=== PATIENT | male | born 1955 | race Caucasian/White ===

== ENCOUNTER 2017-02-20 15:39 | Observation (INO) | payer MEDICAID ==
[2017-02-20] MEDS ORDERED: NALOXONE HCL 0.4 MG/ML INJ IVP ONE (15:40)
[2017-02-20] MEDS ORDERED: KETAMINE 100 MG/10 ML SYR IVP ONE (16:00)
[2017-02-20 16:29] LABS: % IMMATURE GRANULYOCYTES 0.5 % (0.0-1.1); ABSOLUTE IMMATURE GRANULOCYTES 0.03 10^3/uL (0.00-0.10); ADD DIFF? NO; ADD MORPH? NO; ADD SCAN? NO; ATYPICAL LYMPHOCYTE FLAG 0 (0-99); FRAGMENT RBC FLAG 0 (0-99); HEMOGLOBIN 10.7 g/dL (13.7-17.5); LEFT SHIFT FLG 0 (0-99); LIPEMIA HEMOLYSIS FLAG 80 (0-99); MEAN CELL HEMOGLOBIN 30.3 pg (27.9-34.1); MEAN CELL HEMOGLOBIN CONCENTR. 31.5 g/dL (32.4-36.7); MEAN CELL VOLUME 96.3 fL (81.5-99.8); MEAN PLATELET VOLUME 8.9 fL (8.7-11.7); PLATELET CLUMPS FLAG 10 (0-99); PLATELET COUNT 208 10^3/uL (150-400); RED BLOOD CELL COUNT 3.53 10^6/uL (4.40-6.38); RED CELL DISTRIBUTION WIDTH 14.8 % (11.5-15.2)
[2017-02-20 16:36] LABS: ANION GAP 12 mEq/L (8-16); CARBON DIOXIDE 23 mEq/l (22-31); CHLORIDE 103 mEq/L (97-110); CREATININE 2.5 mg/dL (0.7-1.3); ETHANOL SERUM < 10 mg/dL (0-10); GLOMERULAR FILTRATION RATE 27; GLUCOSE 96 mg/dL (70-100); POTASSIUM 4.6 mEq/L (3.5-5.2); SODIUM 138 mEq/L (134-144)
[2017-02-20 16:39] LABS: INR 1.09 (0.83-1.16)
--- NOTE | 2017-02-20 16:42 | EDPHY ---
H & P Time Seen by Provider: 02/20/17 16:18 HPI/ROS: CHIEF COMPLAINT: Full trauma activation HISTORY OF PRESENT ILLNESS: The patient is brought in by paramedics as a full trauma activation. He reportedly was a physical therapy appointment or he was noted to be altered. He reported to his therapist that he had fallen down stairs last night. The patient arrives and is somnolent and appears to be sedated. He reports he fell down his stairs. He struck his head. He had an unknown loss of consciousness. He complains of right shoulder pain and right rib pain. He denies any abdominal pain or lower extremity pain. The patient does complain of a mild headache and generalized neck pain. He denies acute numbness or weakness. REVIEW OF SYSTEMS: A comprehensive 10 point review of systems is otherwise negative aside from elements mentioned in the history of present illness. Source: Patient, EMS Exam Limitations: Clinical condition - Personal History Current Tetanus/Diphtheria Vaccine: Unsure - Medical/Surgical History PMH: Past medical history: Hypertension, chronic pain - Family History Significant Family History: No pertinent family hx - Social History Smoking Status: Unknown if ever smoked - Physical Exam Exam: General Appearance: Elderly male, diaphoretic, appears sedated and confused Head: Atraumatic Eyes: Pupils equal, round, reactive ENT, Mouth: No hemotympanum, no oral trauma Neck: In C-collar upon arrival, minimal tenderness to palpation in the cervical spine, no palpable step-off or deformity Respiratory: Tenderness to palpation right anterior chest wall and right distal clavicle Cardiovascular: Regular rate and rhythm Abdomen: Abdomen is soft and nontender, pelvis stable Skin: No lacerations, No abrasion Back: No midline T/L/S pain Extremities: Nontender, full range of motion Neurological: GCS 13,-1 eyes -1 verbal Constitutional: Initial Vital Signs Temperature (C) 36.7 C 02/20/17 16:56 Heart Rate 93 02/20/17 16:56 Respiratory Rate 20 02/20/17 16:56 Blood Pressure 94/64 L 02/20/17 16:56 O2 Sat (%) 97 02/20/17 16:56 O2 Delivery Mode Non-Rebreather Mask Allergies/Adverse Reactions: No Known Allergies Allergy (Unverified 02/20/17 16:45) Home Medications: Medication Instructions Recorded Atorvastatin Calcium [Lipitor 40 40 mg PO HS 02/20/17 mg (*)] Bupropion HCl [Wellbutrin Xl] 300 mg PO DAILY 02/20/17 Eszopiclone [Lunesta] 3 mg PO HS PRN 02/20/17 Gabapentin [Neurontin] 1,200 mg PO DAILY 02/20/17 Gabapentin [Neurontin] 1,800 mg PO HS 02/20/17 Lisinopril/Hctz 20/12.5MG 2 ea PO DAILY 02/20/17 [Zestoretic/Prinzide 20/12.5MG (*)] Metaxalone [Skelaxin 800 mg (*)] 800 mg PO TID 02/20/17 Metoclopramide [Reglan 10 mg tab 10 mg PO ACHS 02/20/17 (*)] Morphine Sulfate [Morphine Sulfate 15 mg PO TID 02/20/17 ER] Omeprazole 40 mg PO DAILY 02/20/17 Silodosin [Rapaflo] 4 mg PO DAILY 02/20/17 lamoTRIgine [Lamictal] 200 mg PO HS 02/20/17 oxyCODONE IR [Oxycodone Ir (*)] 10 mg PO Q6HRS 02/20/17 Medical Decision Making - Diagnostics Imaging Results: Imaging Impressions Chest X-Ray 02/20/17 15:50 Impression: Distal right clavicle fracture, otherwise negative trauma chest. Abdomen/Pelvis CT 02/20/17 16:20 Impression: 1. Comminuted minimally displaced posterior right first rib fracture with nondisplaced posterior right 2nd rib fracture and a probable nondisplaced right 3rd rib fracture. 2. Comminuted distal right clavicular fracture. 3. No acute posttraumatic findings in the abdomen or pelvis. 4. Constipation. 5. Numerous bullae in the lungs. 6. Bilateral nonobstructing nephrolithiasis. 7. Additional findings as above. Note: The study is limited by the lack of IV contrast, particularly assessment of the solid organs and the aorta. Findings discussed with Dr. Navjot Nelson on February 20, 2017 at [address] 02/20/17 16:20 Impression: 1. No acute posttraumatic abnormality identified in the cervical spine. 2. Comminuted minimally displaced posterior right first rib fracture with a nondisplaced posterior right second rib fracture and a probable nondisplaced right third rib fracture. 3. Additional findings as above. Findings discussed with Dr. Navjot Nelson on February 20, 2017 at [address] 02/20/17 16:20 Impression: 1. Comminuted minimally displaced posterior right first rib fracture with nondisplaced posterior right 2nd rib fracture and a probable nondisplaced right 3rd rib fracture. 2. Comminuted distal right clavicular fracture. 3. No acute posttraumatic findings in the abdomen or pelvis. 4. Constipation. 5. Numerous bullae in the lungs. 6. Bilateral nonobstructing nephrolithiasis. 7. Additional findings as above. Note: The study is limited by the lack of IV contrast, particularly assessment of the solid organs and the aorta. Findings discussed with Dr. Navjot Nelson on February 20, 2017 at [address] 02/20/17 16:21 Impression: 1. No acute intracranial findings. 2. Diffuse cerebral atrophy with periventricular and subcortical low attenuation consistent with chronic microvascular ischemic gliosis. Findings discussed with Dr. Navjot Nelson on February 20, 2017 at 1626 hours. Procedures: Procedure: Trauma ultrasound. Limited bedside ultrasound was performed and interpreted by myself for the indication of: Chest contusion. The exam was performed utilizing the thoracoabdominal emergency ultrasound protocol. Limited transthoracic echocardiogram: The pericardium was visualized and found to be negative for pericardial fluid. The study was negative for pericardial effusion. Limited abdominal ultrasound for blunt abdominal trauma. 1) The right upper quadrant was visualized and was found to be negative for intraperitoneal fluid. 2) The left upper quadrant was visualized and found to be negative for intraperitoneal fluid. The study was felt to be negative for free intraperitoneal fluid. Limited pelvic ultrasound was conducted for abdominal tenderness. The bladder was visualized and did not reveal an anechoic area outside of the adjacent urinary bladder. Bladder was distended with urine. The images were saved on the ultrasound database. ED Course/Re-evaluation: The patient presents to the ED as a full trauma activation. He arrives via paramedics emergently. He was met by myself and Dr. Martinez upon arrival. The patient's initial GCS is 13-14. The patient was given 1 mg of Narcan for pinpoint pupils and confusion. This did result in some improvement of his mental status and symptoms consistent with mild narcotic withdrawal. The patient was taken for a stat CT scan of his head, chest, cervical spine, abdomen and pelvis without contrast. The results of the studies demonstrate no evidence of an intracranial hemorrhage or cervical spine fracture. The patient does have a right 1st rib fracture and a right distal clavicle fracture. CT scan of the abdomen pelvis without contrast demonstrates no evidence of an intraperitoneal or retroperitoneal injury. I did access the [employer] EHR system in see the patient's creatinine was 1.5 in May of 2016. The patient underwent serial examinations in the ED. He continues to be quite somnolent. The patient will require admission to the hospital secondary to his ongoing altered mental status and trauma. The patient will be admitted to the trauma service for 23 hours as the patient has arrived as a full trauma activation. Consultation was made with the hospitalist service at the request of Dr. Martinez for evaluation of the patient's acute renal failure. I spoke with Dr. Jose Chatterjee at 6:00 p.m. who will see the patient in consultation. Differential Diagnosis: Differential diagnosis considered includes intracranial hemorrhage, cervical spine fracture, rib fracture, clavicle fracture, intra-abdominal hemorrhage, retroperitoneal hemorrhage. Critical Care Time: Critical care time exclusive of procedures and exclusive of the PA's time was 35 minutes, performed by myself, Navjot Nelson MD. The patient presents to the ED as a full trauma activation. He arrived with altered mental status in the setting of head trauma. The patient required a stat CT scan of his head, cervical line, chest abdomen pelvis. The patient was seen in consultation by the trauma service as well as medicine. The patient will require admission to the intensive care unit in the setting of his ongoing altered mental status and acute renal failure. - Data Points Laboratory Results: Laboratory Results 02/20/17 15:45 02/20/17 15:45 02/20/17 02/20/17 02/20/17 15:45 15:45 15:45 WBC 6.17 10^3/uL 10^3/uL (3.80-9.50) RBC 3.53 10^6/uL L 10^6/uL (4.40-6.38) Hgb 10.7 g/dL L g/dL (13.7-17.5) Hct 34.0 % L % (40.0-51.0) MCV 96.3 fL fL (81.5-99.8) MCH 30.3 pg pg (27.9-34.1) MCHC 31.5 g/dL L g/dL (32.4-36.7) RDW 14.8 % % (11.5-15.2) Plt Count 208 10^3/uL 10^3/uL (150-400) MPV 8.9 fL fL (8.7-11.7) Neut % (Auto) 68.6 % % (39.3-74.2) Lymph % (Auto) 13.8 % L % (15.0-45.0) [place] % (Auto) 13.0 % % (4.5-13.0) Eos % (Auto) 3.9 % % (0.6-7.6) Baso % (Auto) 0.2 % L % (0.3-1.7) Nucleat RBC Rel Count 0.0 % % (0.0-0.2) Absolute Neuts (auto) 4.24 10^3/uL 10^3/uL (1.70-6.50) Absolute Lymphs (auto) 0.85 10^3/uL L 10^3/uL (1.00-3.00) Absolute Monos (auto) 0.80 10^3/uL 10^3/uL (0.30-0.80) Absolute Eos (auto) 0.24 10^3/uL 10^3/uL (0.03-0.40) Absolute Basos (auto) 0.01 10^3/uL L 10^3/uL (0.02-0.10) Absolute Nucleated RBC 0.00 10^3/uL 10^3/uL (0-0.01) Immature Gran % 0.5 % % (0.0-1.1) Immature Gran # 0.03 10^3/uL 10^3/uL (0.00-0.10) PT 14.0 SEC SEC (12.0-15.0) INR 1.09 (0.83-1.16) APTT 30.0 SEC SEC (23.0-38.0) Sodium 138 mEq/L mEq/L (134-144) Potassium 4.6 mEq/L mEq/L (3.5-5.2) Chloride 103 mEq/L mEq/L (97-110) Carbon Dioxide 23 mEq/l mEq/l (22-31) Anion Gap 12 mEq/L mEq/L (8-16) BUN 30 mg/dL H mg/dL (7-23) Creatinine 2.5 mg/dL H mg/dL (0.7-1.3) Estimated GFR 27 Glucose 96 mg/dL mg/dL (70-100) Calcium 9.0 mg/dL mg/dL (8.5-10.4) Ethyl Alcohol < 10 mg/dL mg/dL (0-10) Medications Given: Discontinued Medications Ketamine HCl (Ketamine) 25 mg IVP EDNOW ONE Stop: 02/20/17 16:01 Last Admin: 02/20/17 16:01 Dose: 25 mg Naloxone HCl (Narcan) 1 mg IVP EDNOW ONE Stop: 02/20/17 15:41 Last Admin: 02/20/17 15:43 Dose: 1 mg Departure - Departure Disposition: [facility] [place] Inpatient Acute Clinical Impression: Clavicle fracture, Rib fracture, Renal failure (ARF), acute on chronic, Chronic pain Condition: Good
[2017-02-20] MEDS ORDERED: POLYETHYLENE GLYCOL 3350 17 GM PKT PO PRN (18:37)
[2017-02-20] MEDS ORDERED: LACTULOSE 20 GM/30 ML UDCUP PO PRN (18:37)
[2017-02-20] MEDS ORDERED: BISACODYL 10 MG SUPP PR PRN (18:37)
[2017-02-20] MEDS ORDERED: ONDANSETRON 4 MG/2 ML VIAL IVP PRN (18:53)
[2017-02-20] MEDS ORDERED: D5W 1/2 NS W/ 20 KCl/L 1,000 ML IV SCH (19:00)
--- NOTE | 2017-02-20 19:03 | SOAPPROG ---
SOAP Progress Note Assessment/Plan: Assessment: 61-YEAR-OLD MALE WHO IS ADMITTED AT THIS TIME FOR RIGHT RIB FRACTURES ARE RIGHT DISTAL CLAVICLE FRACTURE WHO IS BROUGHT TO THE ER A POSSIBLE ALL FULL TRAUMA ACTIVATION BECAUSE OF ALTERED MENTAL STATUS WHICH APPEARS TO BE SIMPLY RELATED TO HIS MULTIPLE NARCOTIC USE HE APPARENTLY FELL A COUPLE DAYS AGO DOWN SOME STAIRS BUT THE HISTORY IS COMPLETELY UNCLEAR AND WAS SENT TO THE ER TODAY AFTER APPOINTMENT AT HIS PAIN CLINIC HE IS A LONG HISTORY OF BACK PROBLEMS FOR WHICH HE HAS HAD SURGERY ON L5-S1 HE ALSO HAS A SPINAL STIMULATOR IN PLACE AND HE IS ON MULTIPLE NARCOTICS ER EVALUATION L SHOWS A RIGHT 1ST 2ND 3RD POSSIBLE RIB FRACTURES AND A DISTAL COMMINUTED RIGHT CLAVICLE FRACTURE CHEST AND ABDOMINAL CT SCANNER OTHERWISE NEGATIVE/HEAD NECK CT SCANNER NEGATIVE CREATININE IS 2.6 ON ADMISSION IN THE ER HE WAS QUITE SOMNOLENT WITH PINPOINT PUPILS THE ONLY EVIDENCE OF TRAUMA WAS A BRUISE OVER HIS RIGHT DISTAL CLAVICLE CHEST SYMMETRICAL AND ESSENTIALLY NONTENDER EXCEPT FOR HIS CLAVICLE COR REGULAR RHYTHM WITHOUT MURMURS ABDOMEN SOFT NONTENDER GENITALIA WERE NEGATIVE EXTREMITIES WITH FULL RANGE OF MOTION FULL PULSES NEUROLOGIC EXAM IS SYMMETRIC AND PHYSIOLOGIC BUT HE IS SOMEWHAT SOMNOLENT AND ERRATIC IN HIS HISTORY SKIN EXAM REVEALS SOME ECCHYMOSES OF THE RIGHT SHOULDER NO OTHER LESIONS HEENT REVEALS NO ICTERUS AND NO SIGNS OF TRAUMA/PUPILS ARE SMALL BUT REACTIVE AND DILATED WELL IN RESPONSE TO NARCAN Plan: ADMIT FOR OBSERVATION/MEDICAL CONSULTATION/FOLLOW-UP CHEST X-RAY AND LABS /FOLLOW-UP CREATININE 02/20/17 18:57 Objective: Vital Signs Temp Pulse Resp BP Pulse Ox 36.7 C 93 20 94/64 L 97 02/20/17 16:56 02/20/17 16:56 02/20/17 16:56 02/20/17 16:56 02/20/17 16:56 PT 14.0 SEC (12.0-15.0) 02/20/17 15:45 INR 1.09 (0.83-1.16) 02/20/17 15:45 ICD10 Worksheet Patient Problems: Problems Problem Status Onset Chronic pain Acute Clavicle fracture Acute Renal failure (ARF), acute on chronic Acute Rib fracture Acute
--- NOTE | 2017-02-20 19:37 | PDGENHP ---
History and Physical - Chief Complaint Acute encephalopathy - History of Present Illness Primary service: Trauma Reason for consultation: Acute kidney injury Primary care provider: Dr. Laura Wise History of present illness: 61-year-old male presenting with acute encephalopathy characterized as somnolence, noted at his physical therapist office while he was in [place] for a pain management and physical therapy appointment. Patient reports that he had driven to [place], gone to his appointment, and then became somewhat sedated. He was then brought to [facility], where his somnolence was somewhat alleviated with Narcan, but resulted in some associated increase in pain. The patient then reported during history taking that he experienced a concomitant fall 2 nights ago, injuring his right shoulder. He reports that he fell against his banister and has subsequently been experiencing pain located in the lateral right shoulder, exacerbated by raising his hand. He reports that he has otherwise been taking all of his home pain medications as prescribed, without any recent dose changes. He also reports that his urine output has remained regular, without any abnormalities. He reports that he does not have a very good appetite but he believes that he has been drinking enough fluids. He otherwise denies any recent exertional physical activity denies any infectious symptoms. He has been somewhat constipated for 2 days. History Information - Allergies/Home Medication List Allergies/Adverse Reactions: No Known Allergies Allergy (Unverified 02/20/17 16:45) Home Medications: Atorvastatin Calcium [Lipitor 40 mg (*)] 40 mg PO HS 02/20/17 [Last Taken ] Bupropion HCl [Wellbutrin Xl] 300 mg PO DAILY 02/20/17 [Last Taken 02/20/17] Eszopiclone [Lunesta] 3 mg PO HS PRN 02/20/17 [Last Taken Unknown] Gabapentin [Neurontin] 1,200 mg PO DAILY 02/20/17 [Last Taken 02/20/17] Gabapentin [Neurontin] 1,800 mg PO HS 02/20/17 [Last Taken 02/19/17] Lisinopril/Hctz 20/12.5MG [Zestoretic/Prinzide 20/12.5MG (*)] 2 ea PO DAILY [Last Taken 02/20/17] Metaxalone [Skelaxin 800 mg (*)] 800 mg PO TID 02/20/17 [Last Taken 02/20/17] Metoclopramide [Reglan 10 mg tab (*)] 10 mg PO ACHS 02/20/17 [Last Taken ] Morphine Sulfate [Morphine Sulfate ER] 15 mg PO TID 02/20/17 [Last Taken ] Omeprazole 40 mg PO DAILY 02/20/17 [Last Taken 02/20/17] Silodosin [Rapaflo] 4 mg PO DAILY 02/20/17 [Last Taken 02/20/17] lamoTRIgine [Lamictal] 200 mg PO HS 02/20/17 [Last Taken 02/19/17] oxyCODONE IR [Oxycodone Ir (*)] 10 mg PO Q6HRS 02/20/17 [Last Taken 02/20/17] I have personally reviewed and updated: family history, medical history, social history, surgical history - Past Medical History Additional medical history: Chronic lower back pain with continuous opiate dependency, has been seen at a local pain clinic for approximately 6 months. Nephrolithiasis. Hypertension. Pre diabetes - Surgical History Additional surgical history: L5-S1 surgery approximately 7 years ago. Spinal stimulator - Family History Additional family history: No family history of end-stage renal disease, his sibling was addicted to prescription pain medications and has since - Social History Smoking Status: Unknown if ever smoked Alcohol Use: None Drug Use: None Additional social history: Patient reports he lives independently in [facility], he likes to drink a lot of Pepsi Review of Systems ROS: 10pt was reviewed & negative except for what was stated in HPI & below Muscolosketal: Reports: other (Right shoulder pain) Physical Exam Temp Pulse Resp BP Pulse Ox 36.7 C 93 20 94/64 L 97 02/20/17 16:56 02/20/17 16:56 02/20/17 16:56 02/20/17 16:56 02/20/17 16:56 Constitutional: no apparent distress, appears nourished, uncomfortable (Right shoulder) Eyes: anicteric sclera, EOMI, other (Somewhat constricted pupils) Ears, Nose, Mouth, Throat: hearing normal, dry mucous membranes Cardiovascular: regular rate and rhythym, no murmur, rub, or gallop, No edema Respiratory: no respiratory distress, no rales or rhonchi, clear to auscultation Gastrointestinal: normoactive bowel sounds, distension (Mild), other (Full), No tenderness Genitourinary: no bladder fullness, no bladder tenderness, other (No CVA tenderness) Skin: other (Ecchymoses over right shoulder, soft tissue edema over right shoulder) Musculoskeletal: other (Limited active range of motion to approximately 45 degrees right shoulder, tenderness to palpation over the right clavicle) Neurologic: AAOx3, sensation intact bilaterally, No weakness (Civil Lawyer strength 5/5 bilateral hands, 5/5 bilateral lower extremities) Psychiatric: interacting appropriately, not anxious, not encephalopathic, thought process linear, other (Concentration 12/30, naming 08/26) Lab Data & Imaging Review 02/20/17 15:45 02/20/17 15:45 WBC 6.17 10^3/uL (3.80-9.50) 02/20/17 15:45 RBC 3.53 10^6/uL (4.40-6.38) L 02/20/17 15:45 Hgb 10.7 g/dL (13.7-17.5) L 02/20/17 15:45 Hct 34.0 % (40.0-51.0) L 02/20/17 15:45 MCV 96.3 fL (81.5-99.8) 02/20/17 15:45 MCH 30.3 pg (27.9-34.1) 02/20/17 15:45 MCHC 31.5 g/dL (32.4-36.7) L 02/20/17 15:45 RDW 14.8 % (11.5-15.2) 02/20/17 15:45 Plt Count 208 10^3/uL (150-400) 02/20/17 15:45 MPV 8.9 fL (8.7-11.7) 02/20/17 15:45 Neut % (Auto) 68.6 % (39.3-74.2) 02/20/17 15:45 Lymph % (Auto) 13.8 % (15.0-45.0) L 02/20/17 15:45 [place] % (Auto) 13.0 % (4.5-13.0) 02/20/17 15:45 Eos % (Auto) 3.9 % (0.6-7.6) 02/20/17 15:45 Baso % (Auto) 0.2 % (0.3-1.7) L 02/20/17 15:45 Nucleat RBC Rel Count 0.0 % (0.0-0.2) 02/20/17 15:45 Absolute Neuts (auto) 4.24 10^3/uL (1.70-6.50) 02/20/17 15:45 Absolute Lymphs (auto) 0.85 10^3/uL (1.00-3.00) L 02/20/17 15:45 Absolute Monos (auto) 0.80 10^3/uL (0.30-0.80) 02/20/17 15:45 Absolute Eos (auto) 0.24 10^3/uL (0.03-0.40) 02/20/17 15:45 Absolute Basos (auto) 0.01 10^3/uL (0.02-0.10) L 02/20/17 15:45 Absolute Nucleated RBC 0.00 10^3/uL (0-0.01) 02/20/17 15:45 Immature Gran % 0.5 % (0.0-1.1) 02/20/17 15:45 Immature Gran # 0.03 10^3/uL (0.00-0.10) 02/20/17 15:45 PT 14.0 SEC (12.0-15.0) 02/20/17 15:45 INR 1.09 (0.83-1.16) 02/20/17 15:45 APTT 30.0 SEC (23.0-38.0) 02/20/17 15:45 Sodium 138 mEq/L (134-144) 02/20/17 15:45 Potassium 4.6 mEq/L (3.5-5.2) 02/20/17 15:45 Chloride 103 mEq/L (97-110) 02/20/17 15:45 Carbon Dioxide 23 mEq/l (22-31) 02/20/17 15:45 Anion Gap 12 mEq/L (8-16) 02/20/17 15:45 BUN 30 mg/dL (7-23) H 02/20/17 15:45 Creatinine 2.5 mg/dL (0.7-1.3) H 02/20/17 15:45 Estimated GFR 27 02/20/17 15:45 Glucose 96 mg/dL (70-100) 02/20/17 15:45 Calcium 9.0 mg/dL (8.5-10.4) 02/20/17 15:45 Ethyl Alcohol < 10 mg/dL (0-10) 02/20/17 15:45 Visualized and Interpreted imaging results: Yes Interpretation: Chest x-ray demonstrating no focal airspace disease, right clavicle fracture distally, right 1st rib fracture Assessment & Plan Assessment: 61-year-old male presents with acute encephalopathy and concomitant trauma with clavicular fracture, in the setting of continuous opiate dependency and suspected acute kidney injury Plan: 1. Acute kidney injury. Suspected, new problem this provider, further workup indicated. The exact etiology is unclear, but I suspect that this has been involving over the past several days, leading to opiate accumulation in his system given poor renal clearance, resulting in gait imbalance, mechanical fall , encephalopathy on day of presentation. -get renal ultrasound to rule out obstruction -get fractional excretion of sodium, urine spot protein, urinalysis -give normal saline at 150 cc/hour, monitor urine output, repeat serum creatinine level in a.m. -order outside records from primary care provider office to determine baseline creatinine level, as he does have risk factors for chronic kidney disease including hypertension and prediabetes 2. Acute encephalopathy. Secondary to opiate pain medications in the setting of acute kidney injury, resulting in poor renal clearance and systemic accumulation -status post Narcan, he is currently not encephalopathic -discussed with Dr. Navjot Nelson, we both agree that the patient has potential for cognitive worsening overnight and should be monitored closely in the step-down unit to ensure he does not experience respiratory suppression 3. Chronic pain with continuous opiate dependency. Once patient's home medications have been reconciled, would recommend lowering his dosage of opiate medication and reducing the frequency, while continuing the muscle relaxant at the regular home dosage -patient may need prescription for home opiate medications in the short term given that he did not reportedly receive his prescription today at clinic 4. Constipation. Secondary to opiate medications, bowel regimen ordered 5. Clavicular fracture. Acute, right, under the management of the trauma service 6. Rib fracture. Acute, 1st right rib, pulmonary toilet order 7. Hypertension. Holding home medication presently given systolic blood pressure 90/4 presentation, if escalates, restart home meds, avoid any renal function modifying medications 8. Chronic lower back pain. Patient has neurosurgery appointment tomorrow, if he is medically cleared, would recommend discharging with ample time to have his outpatient appointment as he has been waiting for quite some time for this consultation Hospital Medicine service will continue to consult in this patient's daily care.
--- NOTE | 2017-02-20 19:44 | GHP ---
[f rep st] HISTORY AND PHYSICAL DATE OF ADMISSION: 02/20/2017 HISTORY OF PRESENT ILLNESS: This is a 61-year-old male who was brought to the ER as a full trauma a ctivation with minimal signs of trauma, who apparently was thought to have altered mental status whe n he was seen today by his pain clinic doctor. He relates a fall yesterday down some stairs, unknow n details. Denies any loss of consciousness. Complains a little bit of his right shoulder. He is on heavy multiple narcotics for chronic back pain, including OxyContin, oxycodone, MS Contin, Flexer il, and others. REVIEW OF SYSTEMS: A 10-point review of systems is essentially negative, although he is a very poor historian. PAST MEDICAL HISTORY: Includes chronic back pain, hypertension, elevated cholesterol. Includes maria fernanda e history of kidney stones. PAST SURGICAL HISTORY: Reveals he has a spinal stimulator. He has had an L5-S1 back surgery. Alexis es any other major surgeries. ALLERGIES: None. MEDICATIONS: Lipitor, , gabapentin, lamotrigine, lisinopril, metaxalone, metoclopramide, morphine sulfate, MS Contin, omeprazole, oxycodone, OxyContin, Percocet, Rapaflo, and Skelaxin. PHYSICAL EXAMINATION: GENERAL: Reveals a 61-year-old male who is in no acute distress. He was spenser arently sedated on arrival in the emergency room, but is much more responsive with dilated pupils at this point after receiving some Narcan. He is afebrile. HEENT: Reveals no evidence of trauma. P upils are reactive. No oral lesions. Neck is nontender and supple. There is no thyromegaly. His TMs are clear. His occlusion is normal. CHEST: Reveals some tenderness over his right distal clav icle and possibly some tenderness over his right ribs. Breath sounds are equal and symmetric. Ther e are no other palpable abnormalities and no sternal pain. CARDIAC: Regular rhythm without murmurs . ABDOMEN: Soft, nontender with positive bowel sounds. His pelvis is intact and stable. EXTREMIT IES: Reveal full pulses, full range of motion. BACK: Reveals no step-offs. He does have a subcut aneous spinal stimulator. SKIN: Reveals no abrasions or lesions except for some mild ecchymosis ov er his right distal clavicle. NEUROLOGIC: Symmetric and physiologic. At the time of my evaluation , his [place] Coma Score is 15. IMPRESSION: 1. Narcotic overuse. 2. Right distal clavicle fracture. 3. Right 1st, 2nd and 3rd possible rib fractures. PLAN: Admit for observation, internal medicine consultation. /[id number]/MODL
[2017-02-20] MEDS: SENNOSIDES/DOCUSATE SODIUM TAB PO SCH (19:54)
[2017-02-20] MEDS: NS 1,000 ML IV SCH (19:57)
[2017-02-20 20:10] LABS: COLOR YELLOW; LEUKOCYTE ESTERASE,URINE NEGATIVE (NEGATIVE); NITRITE,URINE NEGATIVE (NEGATIVE)
[2017-02-20 20:19] LABS: MUCUS TRACE /lpf (NONE-1+)
[2017-02-20 20:45] LABS: RANDOM URINE PROTEIN 19 mg/dL (0-11)
[2017-02-21] MEDS ORDERED: oxyCODONE IR 5 MG TAB PO ONE (01:00)
[2017-02-21] MEDS ORDERED: ZOLPIDEM TARTRATE 5 MG TAB PO ONE (01:00)
[2017-02-21] MEDS: NS 1,000 ML IV SCH ×2 (01:10→07:24)
[2017-02-21 05:34] LABS: APTT 30.7 SEC (23.0-38.0); INR 1.12 (0.83-1.16); PROTIME(PATIENT) 14.3 SEC (12.0-15.0)
[2017-02-21 05:40] LABS: ALANINE AMINOTRANSFERASE 28 IU/L (21-72); ALBUMIN 3.4 g/dL (3.5-5.0); ALKALINE PHOSPHATASE 62 IU/L (38-126); ANION GAP 8 mEq/L (8-16); ASPARTATE AMINOTRANSFERASE 20 IU/L (17-59); BILIRUBIN,TOTAL 0.6 mg/dL (0.1-1.4); BILIRUBIN-CONJUGATED 0.4 mg/dL (0.0-0.5); BILIRUBIN-UNCONJUGATED 0.2 mg/dL (0.0-1.1); CALCIUM 8.2 mg/dL (8.5-10.4); CARBON DIOXIDE 22 mEq/l (22-31); CHLORIDE 109 mEq/L (97-110); CREATININE 1.4 mg/dL (0.7-1.3); GLOMERULAR FILTRATION RATE 52; GLUCOSE 82 mg/dL (70-100); POTASSIUM 4.4 mEq/L (3.5-5.2); SODIUM 139 mEq/L (134-144); TOTAL PROTEIN 5.7 g/dL (6.3-8.2)
[2017-02-21 05:43] LABS: % IMMATURE GRANULYOCYTES 0.4 % (0.0-1.1); ABSOLUTE IMMATURE GRANULOCYTES 0.02 10^3/uL (0.00-0.10); ADD DIFF? NO; ADD MORPH? NO; ADD SCAN? NO; ATYPICAL LYMPHOCYTE FLAG 10 (0-99); FRAGMENT RBC FLAG 0 (0-99); HEMATOCRIT 30.1 % (40.0-51.0); HEMOGLOBIN 9.5 g/dL (13.7-17.5); LEFT SHIFT FLG 0 (0-99); LIPEMIA HEMOLYSIS FLAG 80 (0-99); MEAN CELL HEMOGLOBIN 30.4 pg (27.9-34.1); MEAN CELL HEMOGLOBIN CONCENTR. 31.6 g/dL (32.4-36.7); MEAN CELL VOLUME 96.2 fL (81.5-99.8); MEAN PLATELET VOLUME 8.8 fL (8.7-11.7); PLATELET CLUMPS FLAG 20 (0-99); PLATELET COUNT 193 10^3/uL (150-400); RED BLOOD CELL COUNT 3.13 10^6/uL (4.40-6.38); RED CELL DISTRIBUTION WIDTH 14.9 % (11.5-15.2)
[2017-02-21 07:40] VITALS: BP 108/84; PULSE 80; RESP 12; TEMP 98.3; O2SAT 89
--- NOTE | 2017-02-21 08:38 | TRAUMAPN ---
<Denise Cole - Last Filed: 02/21/17 09:30> Assessment/Plan: 61yo M with chronic pain and remote fall admitted c R clav, R rib fractures Pain controlled Sling for comfort PT and OT to see Continue IS, deep breathing Appreciate hospitalist management of ROYCE Dispo: DC today. F/u CXR and BMP on Monday. F/u with Dr. Lin on monday after imaging/labs. Call to make appt. Ortho appt as outpatient S: Pain is controlled. Has an appt this afternoon that he would like to make it to. O: Sitting upright in chair, comfortable, NAD NCAT, PER, MMM, no scleral icterus CTAB, no increased WOB RRR, no peripheral edema Abd soft, NT, ND Skin warm and dry. RUE limited ROM d/t discomfort Neuro grossly intact Psych mood and affect normal Objective: Vital Signs Temp Pulse Resp BP Pulse Ox 36.8 C 80 12 108/84 H 89 L 02/21/17 07:38 02/21/17 07:38 02/21/17 07:38 02/21/17 07:38 02/21/17 07:38 Laboratory Results 02/21/17 05:14 02/21/17 05:14 02/20/17 02/21/17 02/22/17 05:59 05:59 05:59 Intake Total 658 125 Output Total 850 250 Balance -192 -125 PT 14.3 SEC (12.0-15.0) 02/21/17 05:14 INR 1.12 (0.83-1.16) 02/21/17 05:14 <Laura Lin - Last Filed: 02/21/17 18:16> Assessment/Plan: appreciate Dr. Nichole seeing as outpatient. Pt requested to be discharged to make it to pain appointment. Repeat CXR Objective: Vital Signs Temp Pulse Resp BP Pulse Ox 36.8 C 80 12 108/84 H 89 L 02/21/17 07:38 02/21/17 07:38 02/21/17 07:38 02/21/17 07:38 02/21/17 07:38 Laboratory Results 02/21/17 05:14 02/21/17 05:14 02/20/17 02/21/17 02/22/17 05:59 05:59 05:59 Intake Total 658 125 Output Total 850 250 Balance -192 -125 PT 14.3 SEC (12.0-15.0) 02/21/17 05:14 INR 1.12 (0.83-1.16) 02/21/17 05:14
[2017-02-21] MEDS ORDERED: NON-FORMULARY NEW DRUG (Bupropion Hcl [Wellbutrin Xl] 300 MG) PO SCH (09:15)
[2017-02-21] MEDS ORDERED: morphINE SR 15 MG TAB PO SCH (09:15)
[2017-02-21] MEDS ORDERED: SILODOSIN 4 MG PO SCH (09:15)
[2017-02-21] MEDS ORDERED: NON-FORMULARY NEW DRUG (Eszopiclone [Lunesta] 3 MG) PO PRN (09:15)
[2017-02-21] MEDS ORDERED: oxyCODONE IR 5 MG TAB PO SCH (09:15)
[2017-02-21] MEDS ORDERED: LISINOPRIL/HCTZ 20/12.5MG 1 EA TAB PO SCH ×2 (09:15→09:30)
[2017-02-21] MEDS ORDERED: ZOLPIDEM TARTRATE 5 MG TAB PO PRN (09:36)
--- NOTE | 2017-02-21 09:40 | HOSPPROG ---
Hospitalist Progress Note Assessment/Plan: Acute encephalopathy - secondary to multiple sedating substances in the setting of ROYCE. Resolved this am. ROYCE - pre-renal, improved with IVF's (Cr 2.5 --> 1.4). Chronic pain due to LBP with h/o spinal fusion and spinal stimulator in place. Continuous opiate dependence - Polypharmacy noted. Discussed case with pain specialist due to concern for fall risk and recommend we agree on decreasing his doses for his safety. He does not have an appt with them today, it was yesterday and when he arrived in altered state, he was sent to ED. Per discussion with Jihan Aguilar, will decrease MS Contin to 15 mg BID, Oxycodone 5-10 mg q8h and decrease bedtime gabapentin dose to 1,200 mg hs. Continue all other meds as Rx'd and f/u with Jihan on 03/06. Pt to call for appt. Fall with rib and clavicular fractures - admitted to trauma service, will need f /u CXR end of the week to be arranged by surgery team. I'm concerned his multiple sedating medications are contributing to his fall risk (morphine ER, oxycodone, high dose gabapentin, skelaxin, etc). Hypertension - Henry held given ROYCE. Will continue to hold at discharge until f/ u with PCP in 2-3 days given lowish BP's and still elevated Cr. Full code Dispo - likely home today if cleared by PT Subjective: Pt is up in chair. Feels well. No significant pain. Wants to go home. Objective: Vital Signs Temp Pulse Resp BP Pulse Ox 36.8 C 80 12 108/84 H 89 L 02/21/17 07:38 02/21/17 07:38 02/21/17 07:38 02/21/17 07:38 02/21/17 07:38 Laboratory Results 02/21/17 05:14 02/21/17 05:14 02/20/17 02/21/17 02/22/17 05:59 05:59 05:59 Intake Total 658 125 Output Total 850 250 Balance -192 -125 PT 14.3 SEC (12.0-15.0) 02/21/17 05:14 INR 1.12 (0.83-1.16) 02/21/17 05:14 - Physical Exam Constitutional: no apparent distress Eyes: PERRL Ears, Nose, Mouth, Throat: moist mucous membranes Cardiovascular: regular rate and rhythym Respiratory: no respiratory distress Skin: warm Musculoskeletal: full muscle strength Neurologic: AAOx3 Psychiatric: interacting appropriately ICD10 Worksheet Patient Problems: Problems Problem Status Onset Chronic pain Acute Clavicle fracture Acute Renal failure (ARF), acute on chronic Acute Rib fracture Acute
[2017-02-21] MEDS ORDERED: buPROPion XL 150 MG TAB PO SCH (09:45)
[2017-02-21] MEDS: SENNOSIDES/DOCUSATE SODIUM TAB PO SCH (10:18)
[2017-02-21] MEDS ORDERED: METOCLOPRAMIDE 10 MG TAB PO SCH (11:30)
--- NOTE | 2017-02-21 11:56 | ASMTCASEMG ---
Living Arrangements What is your living arrangement? Who do you live Answers: With Spouse with? Services Used Prior to Admission Other Services Used Prior to Admission Notes: Goes to a Pain Clinic Case Management Evaluation Functional: Able to return Home with Prior Level Answers: Yes of Function/Care Functional: ADL / IADL Performance Deficits Due Answers: Mobility Issues to: Psychosocial Needs: Answers: Active Substance Abuse Notes: dependent on narcs for pain Discharge Plan Comments Coordination Status Comments Notes: Pt has chronic back pain, goes to a Pain Clinic, has an appt for today. Admitted after a fall w/cla vical and rib fx's, Pt has a hx of spinal fusion and has a back pain stimulator which has not been effective. Concerns that pt is on a great deal of pain medications which may have cause his fall. PT will d/c home w/ and go to his appt at Pain Clinic. Date Signed: 02/21/2017 09:42 AM Electronically Signed By:Monica Neely
[2017-02-21] MEDS ORDERED: METAXALONE 800 MG TAB PO SCH (16:00)
[2017-02-21] MEDS ORDERED: lamoTRIgine 100 MG TAB PO SCH (21:00)
[2017-02-21] MEDS ORDERED: ATORVASTATIN CALCIUM 40 MG TAB PO SCH (21:00)
[2017-02-22] MEDS ORDERED: PANTOPRAZOLE SODIUM 40 MG TAB PO SCH (09:00)
--- NOTE | 2017-02-22 10:32 | ASDISCHSUM ---
Discharge Information Plan Status:Home with No Needs Medically Cleared to Leave: Discharge Date:02/21/2017 11:30 AM CM D/C Disposition:Home, Routine, Self-Care ADT D/C Disposition:Home, Routine, Self-Care Projected Discharge Date:02/21/2017 12:00 AM Transportation at D/C:Family Discharge Delay Reason: Follow-Up Date:02/21/2017 12:00 AM Discharge Slot: Final Diagnosis: Placement Information Patient Contact Information Contact Name:DIANECROSE Relationship: Address: Work Phone: [place] 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 Who do you live with? Services Used Prior to Admission Other Services Used Prior to Admission Notes: Goes to a Pain Clinic Case Management Evaluation Functional: Able to Answers: Yes return Home with Prior Level of Function/Care Functional: ADL / IADL Answers: Mobility Issues Performance Deficits Due to: Psychosocial Needs: Answers: Active Substance Abuse Notes: dependent on narcs for pain Discharge Plan Comments Coordination Status Comments Notes: Pt has chronic back pain, goes to a Pain Clinic, has an appt for today. Admitted after a fall w/clavical and rib fx's, Pt has a hx of spinal fusion and has a back pain stimulator which has not been effective. Concerns that pt is on a great deal of pain medications which may have cause his fall. PT will d/c home w/ and go to his appt at Pain Clinic. Date Signed: 02/21/2017 09:42 AM Electronically Signed By:Monica Neely Intervention Information
--- NOTE | 2017-02-22 14:07 | GDS ---
[f rep st] DISCHARGE SUMMARY ADMITTING DIAGNOSIS: Altered mental status, status post fall. SECONDARY DIAGNOSES: 1. Right clavicle fracture. 2. Right rib fractures 1 through 3. 3. Hypertension. 4. Chronic back pain with spinal stimulator. 5. Acute kidney injury, improved. REASON FOR ADMISSION: The patient is a 61-year-old man who had a physical therapy appointment, at [facility] time they noted altered mental status. He was sent to the emergency room for further workup. At that time, it was revealed that he had fallen several days prior and had right-sided pain. He wa s admitted for further workup, pain control, observation. HOSPITAL COURSE: In the emergency room, he had an extensive workup, which revealed a right distal c omminuted displaced clavicular fracture. Also revealed posterior right rib fractures, 1 through 3. No acute abnormalities of the C-spine or head. He received Narcan, with improvement of his mental status. He was also found to have acute kidney injury, with creatinine of 2.5. A renal ultrasound showed no evidence of hydronephrosis. He did have right nephrolithiasis. He was admitted for [facility] er observation. The following morning, he had a chest x-ray performed, which was stable, no new inj ury. He had a previously scheduled appointment later that day and wanted to be discharged in order to make his pain clinic appointment. He was seen by Physical Therapy and Occupational Therapy and h as been cleared. CONDITION: Being discharged home in stable condition, pain controlled with oral pain medication, to lerating regular diet, ambulating independently. DISCHARGE MEDICATIONS: He was provided prescriptions for morphine and oxycodone. His dose of gabap entin was altered. His lisinopril hydrochlorothiazide was put on hold. Please see EMR for further details. DISCHARGE INSTRUCTIONS AND FOLLOWUP: He will follow up with his pain practitioner as previously arturo david. He should follow up with his primary care provider later this week regarding the lisinopril and being held. He will follow up with Dr. Laura Lin on Monday. He will get a chest x-ray prior to that visit. Also, re-evaluate BMP prior to appointment with primary care. He will follow up [facility] Dr. Nichole 1-2 weeks after discharge regarding the clavicular fracture. Sling for comfort. He will continue to use incentive spirometry and ambulate, as well as deep breathe. He understands to call our office with any worsening symptoms, questions, or concerns. /[id number]/MODL
== END 2017-02-21 11:30 | disposition home or self-care (01) ==
LOC: F2N 19:00
PROVIDERS: ADMIT Surgery; ATTEND Surgery
CPT/HCPCS: 70450; 71010; 71250; 72125; 73000; 74176; 76770; 97161; 97165; G0378; G8987; G8988; G8989; 82947-QW; 96374; G0480; L0174